=== PATIENT | female | born 1965 | race Caucasian/White ===

== ENCOUNTER 2018-10-24 17:00 | Inpatient (IN) ==
[2018-10-24] MEDS ORDERED: Nitroglycerin Drip Premix 50 MG/250 ML BOTTLE IV.CONT PRN (17:21)
--- NOTE | 2018-10-24 17:31 | ED ---
HPI General Chief Complaint: Chest Pain Stated Complaint: Chest Pain Time Seen by Provider: 10/24/18 17:08 Source: patient Mode of arrival: EMS Limitations: no limitations History of Present Illness HPI narrative: Patient is a 53-year-old female with history of hypertension, ischemic cardiomyopathy, CHF, AICD, coronary disease status past 10 stents, history of tobacco abuse, presents to the emergency room with complaints of chest pain. Patient reports that her pharmacy intake technician is Dr. Pina. Patient reports that she was laying down around 2 PM this afternoon when she began to have massive chest pain. Patient reports that chest pain is located to her left chest, reports that it feels like a "massive pain" to her chest. Patient reports that she has been feeling diaphoretic with nausea and no vomiting with her symptoms. Patient is concerned as her chest pain radiates to her neck and her left jaw. Patient reports that this pain feels similar to when she had a heart attack in the past. Patient was admitted to the hospital October 12, 2018 with similar complaints. Reports that she was discharged the next day and not followed up with her pharmacy intake technician since then. Patient reports that she did take 2 nitroglycerin prior to coming to the emergency room - it did help with her chest pain but reports return of chest pain shortly thereafter. She did take her full dose of asa 325mg prior to coming to the ER. Related Data Home Medications Medication Instructions Recorded Confirmed albuterol sulfate 2 puff INHALATION Q4-6H PRN 10/11/18 10/24/18 alprazolam 1 mg PO BID 10/11/18 10/24/18 aspirin 325 mg PO DAILY 10/11/18 10/24/18 atorvastatin 10 mg PO DAILY 10/11/18 10/24/18 fluticasone 2 spray INTRANASAL DAILY 10/11/18 10/24/18 furosemide 20 mg PO DAILY 10/11/18 10/24/18 isosorbide mononitrate 120 mg PO DAILY 10/11/18 10/24/18 nitroglycerin 0.4 mg SUBLINGUAL Q5-15M PRN 10/11/18 10/24/18 omeprazole 10 mg PO DAILY 10/11/18 10/24/18 oxycodone-acetaminophen 1 tab PO Q6H PRN 10/11/18 10/24/18 spironolactone 25 mg PO BID 10/11/18 10/24/18 zolpidem 10 mg PO HS PRN 10/11/18 10/24/18 Allergies Allergy/AdvReac Type Severity Reaction Status Date / Time hydrocodone Allergy Severe Hives Verified 10/24/18 17:37 morphine Allergy Severe Hives Verified 10/24/18 17:37 acetaminophen AdvReac Severe Nausea Verified 10/24/18 17:37 metoclopramide [From Reglan] AdvReac Severe Nausea/Vomi Verified 10/24/18 17:37 ting ondansetron AdvReac Severe Nausea/Vomi Verified 10/24/18 17:37 ting Review of Systems ROS: all other systems reviewed are negative [facility] Medical History Medical History Afib (Acute) Cardiomyopathy (Acute) Hyperlipidemia (Acute) Presence of combination internal cardiac defibrillator (ICD) and pacemaker ( Acute) Surgical History Surgical History History of heart artery stent (Acute) S/P right and left heart catheterization (Acute) Social History Social History Substance History: No History of Abuse Second Hand Smoke Exposure: No Smoking Status: Current every day smoker Tobacco Type: Cigarettes How Often Do You Have a Drink Containing Alcohol: Never Recent Travel in [facility] within the Last 8 Weeks: No Recent Out of Country Travel within the Last 8 Weeks: No Immunization History Tetanus Immunization: <5 Years Exam Narrative Exam Narrative: GENERAL: Mild distress SKIN: Focused skin assessment warm/dry. HEAD: Atraumatic. Normocephalic. EYES: Pupils equal and round. No scleral icterus. No injection or drainage. ENT: No nasal bleeding or discharge. Mucous membranes pink and moist. NECK: Trachea midline. No JVD. CARDIOVASCULAR: Regular rate and rhythm. +2/6 systolic murmur appreciated RESPIRATORY: No accessory muscle use. Clear to auscultation. Breath sounds equal bilaterally. GASTROINTESTINAL: Abdomen soft, non-tender, nondistended. Hepatic and splenic margins not palpable. MUSCULOSKELETAL: No obvious deformities. No clubbing. No cyanosis. No edema. NEUROLOGICAL: Awake and alert. No obvious cranial nerve deficits. Motor grossly within normal limits. Normal speech. PSYCHIATRIC: Appropriate mood and affect; insight and judgment normal. Course Initial Documented Vital Signs Temperature 99.1 F 10/24/18 17:24 Pulse Rate 89 10/24/18 17:24 Respiratory Rate 18 10/24/18 17:24 Blood Pressure 137/74 10/24/18 17:24 Pulse Oximetry 95 10/24/18 17:24 Last Documented Vital Signs Temperature 99.1 F 10/24/18 17:24 Pulse Rate 81 10/24/18 18:45 Respiratory Rate 26 H 10/24/18 18:45 Blood Pressure 146/69 H 10/24/18 18:45 Pulse Oximetry 99 10/24/18 18:45 Critical Care Time Critical Care Time: Yes Total Critical Care Time: 30 Attestation: Aggregate critical care time was 30 minutes. Time to perform other separately billable procedures was not included in the critical care time. My time did not include minutes spent treating any other patients simultaneously or on activities that did not directly contribute to the patient's treatment. The services I provided to this patient were to treat and/or prevent clinically significant deterioration that could result in: , decompensation, deterioration I provided critical care services requiring my management, as noted below: Chart data review, documentation time, medication orders and management, vital sign assessments/reviewing monitor data, ordering and reviewing lab tests, ordering and interpreting/reviewing x-rays and diagnostic studies, care of the patient and discussion of the patient with the admitting physicians. Medical Decision Making MDM Narrative Medical decision making narrative: During the course of the patients emergency department visit, the patients history, examination, and differential diagnosis were reviewed with the patient. The patient was placed on a gambling monitor with oximetry and frequent blood pressure monitoring. The patient had an IV access obtained and blood work sent for analysis. The patient was initially started on nitro drip to control her chest pain as 2 SL nitro's did help with her symptoms. I did review patient's past admission and consult to cardiology. As per Dr. Boggs' s note: he did review patient's case with Dr. Arita - "the patient has always been complaining of chest pain. The patient has at least 10 cardiac catheterizations, last one showed no significant stenosis or anything to be fixed. He thinks that the patient may be dependent on narcotics. At the time of interview, patient looks comfortable despite complaints of chest pain. "Patient's last cardiac catheterization was 9 months ago according to Dr. Arita and there is nothing to fix. Ultimately, patient was discharged with instructions to follow-up with him in the office early next week Patient reports that she did not follow-up with Dr. Arita in the office as she has been going through alot at home as her fiance recently . Case reviewed with Dr. Whipple - request nitro, heparin drip and will trend trops case reviewed with Dr. Motley who accepts pt to service Medical Screen Exam Complete: Yes Emergency Medical Condition: Yes Differential Diagnosis Differential Diagnosis: ACS, arrhythmia, narcotic dependency Medical Records Medical records reviewed: Yes I reviewed the patient's medical records. Lab Data Result diagrams: 10/24/18 17:30 10/24/18 17:30 Lab Results 10/24/18 10/24/18 10/24/18 Range/Units 17:30 17:30 17:30 WBC 8.2 (4.0-11.0) th/mm3 RBC 4.81 (4.00-5.30) mil/mm3 Hgb 11.9 (11.6-15.3) gm/dL Hct 37.3 (35.0-46.0) % MCV 77.5 L (80.0-100.0) fL MCH 24.7 L (27.0-34.0) pg MCHC 31.8 L (32.0-36.0) % RDW 19.5 H (11.6-17.2) % Plt Count 241 D (150-450) th/mm3 MPV 8.7 (7.0-11.0) fL Neut % (Auto) 64.4 (16.0-70.0) % Lymph % (Auto) 25.3 (9.0-44.0) % [place] % (Auto) 9.0 H (0.0-8.0) % Eos % (Auto) 0.8 (0.0-4.0) % Baso % (Auto) 0.5 (0.0-2.0) % Neut # (Auto) 5.3 (1.8-7.7) th/mm3 Lymph # (Auto) 2.1 (1.0-4.8) th/mm3 [place] # (Auto) 0.7 (0.0-0.9) th/mm3 Eos # (Auto) 0.1 (0.0-0.4) th/mm3 Baso # (Auto) 0.0 (0.0-0.2) th/mm3 WBC Differential . Differential Comment Auto diff final PT 12.2 H (9.8-11.6) sec INR 1.2 Ratio APTT 25.9 (23.4-31.7) sec Total Bilirubin 0.8 (0.2-1.0) mg/dL Alkaline Phosphatase 102 (45-117) U/L Troponin I 0.02 (0.02-0.05) ng/mL Total Protein 7.6 (6.4-8.2) g/dL Imaging Data Radiologist's impression: Chest X-Ray 10/24/18 17:21 CONCLUSION: 1. Subtle perihilar and lower lung zone interstitial opacity could represent mild interstitial pulmonary edema. 2. Stable enlargement of the cardiac silhouette. ECG Data EKG Prior to Arrival: Yes Attestation: I personally reviewed and interpreted this ECG as follows: Prior ECG tracings: available for review Interpretation: EKG at 1722: NSr at 89bpm, qt/qtc: 403/449, there is no acute st or t wave changes, ekg is similar to ekg from 10/11/18 Discharge Plan Discharge Disposition Patient Disposition: ED Admit(ED Internal Use Only) Discharge Condition Condition: Fair Discharge Order Discharge Orders: ED Use Only Admit Order (Routine); Ordered 10/24/18 Ordered By: Almaz aGlarza Discharge Details Diagnosis: Unstable angina Physicians Team ED Provider: Almaz Galarza Rxs /Orders / Referrals /Forms Prescriptions: No Action atorvastatin 10 mg Tablet 10 mg PO DAILY RF: 0 spironolactone 25 mg Tablet 25 mg PO BID RF: 0 isosorbide mononitrate 120 mg Tablet Extended Release 24 Hr 120 mg PO DAILY RF: 0 alprazolam 0.5 mg Tablet 1 mg PO BID RF: 0 omeprazole 10 mg Capsule,Delayed Release(Dr/Ec) 10 mg PO DAILY RF: 0 aspirin 325 mg Tablet,Delayed Release (Dr/Ec) 325 mg PO DAILY RF: 0 oxycodone-acetaminophen 10-325 mg Tablet 1 tab PO Q6H PRN (Reason: Pain) RF: 0 nitroglycerin 0.4 mg Tablet, Sublingual 0.4 mg SUBLINGUAL Q5-15M PRN (Reason: Chest Pain) RF: 0 furosemide 20 mg Tablet 20 mg PO DAILY RF: 0 zolpidem 10 mg Tablet 10 mg PO HS PRN (Reason: Insomnia) RF: 0 albuterol sulfate 90 mcg/actuation Hfa Aerosol Inhaler 2 puff INHALATION Q4-6H PRN (Reason: Wheezing) RF: 0 fluticasone 50 mcg/actuation [place],Suspension 2 spray INTRANASAL DAILY RF: 0 Discharge Instructions Patient Printed Instructions: Chest Pain (ED) Status ED Status: Admitted Patient
--- NOTE | 2018-10-24 17:45 | XR ---
EXAM DATE: 10/24/2018 5:41 PM EST AGE/SEX: 53 years / Female INDICATIONS: Chest pain. CLINICAL DATA: This is the patient's initial encounter. Patient reports that signs and symptoms have been present for 1 day and indicates a pain score of 10/10. MEDICAL/SURGICAL HISTORY: Cardiovascular disease. Pacemaker. Coronary artery stent. section. Cholecystectomy. [place]PAR[place]: [facility] [place]ST 2V PA&LAT, 10/11/2018. . FINDINGS: Portable AP view of the chest demonstrate stable enlargement of the cardiac silhouette. Right chest w all cardiac pacing device is present with lead tips overlying the right heart. No effusion, consolida tion, or pneumothorax is identified. There is mild interstitial prominence in the perihilar and lower lung zone distribution. The bones and soft tissues demonstrate no acute abnormality. CONCLUSION: 1. Subtle perihilar and lower lung zone interstitial opacity could represent mild interstitial pulmo nary edema. 2. Stable enlargement of the cardiac silhouette. Electronically signed by: Rowdy Powers MD Board Certified Radiologist 10/24/2018 5:43 PM EST
[2018-10-24 17:46] LABS: Baso % (Auto) 0.5 % (0.0-2.0); Eos # (Auto) 0.1 th/mm3 (0.0-0.4); Eos % (Auto) 0.8 % (0.0-4.0); Hematocrit 37.3 % (35.0-46.0); Hemoglobin 11.9 gm/dL (11.6-15.3); Lymph # (Auto) 2.1 th/mm3 (1.0-4.8); Lymph % (Auto) 25.3 % (9.0-44.0); Mean Corpuscular HGB Conc 31.8 % (32.0-36.0); Mean Corpuscular Hemoglobin 24.7 pg (27.0-34.0); Mean Corpuscular Volume 77.5 fL (80.0-100.0); Mean Platelet Volume 8.7 fL (7.0-11.0); Mono # (Auto) 0.7 th/mm3 (0.0-0.9); Neut # (Auto) 5.3 th/mm3 (1.8-7.7); Neut % (Auto) 64.4 % (16.0-70.0); Platelet Count 241 th/mm3 (150-450); Red Blood Count 4.81 mil/mm3 (4.00-5.30); Red Cell Distribution Width 19.5 % (11.6-17.2); White Blood Count 8.2 th/mm3 (4.0-11.0)
[2018-10-24 18:00] LABS: Activated Partial Thrombo Time 25.9 sec (23.4-31.7); INR 1.2 Ratio; Prothrombin Time 12.2 sec (9.8-11.6)
[2018-10-24 18:09] LABS: Alkaline Phosphatase 102 U/L (45-117); Total Protein 7.6 g/dL (6.4-8.2); Troponin I 0.02 ng/mL (0.02-0.05)
[2018-10-24] MEDS ORDERED: Bisacodyl 10 MG Supp RECTAL PRN (19:53)
[2018-10-24 20:10] LABS: Amphetamine Screen,Urine Neg (Neg); Barbiturate Screen,Urine Neg (Neg); Cannabinoid Screen,Urine Neg (Neg); Cocaine Screen,Urine Neg (Neg)
[2018-10-24 20:11] LABS: Opiate Screen,Urine Neg (Neg)
--- NOTE | 2018-10-24 21:06 | P.HPIM ---
History of Present Illness Primary Care Physician: No Primary Care Physician History of Present Illness: BNP 686.This is a 53-year-old female with a PMH of HTN, Ischemic Cardiomyopathy, CHF, s/p AICD, CAD s/p Stent x10 and Tobacco Abuse who presented to the ER w/ c/o chest pain. Recent admit 10/12/18 for similar complaints, s/p eval by Cardiology w/ no signs of ischemia, recommendation for medical management. Returns now w/ ongoing complaints. Pt very anxious/tearful on exam, requesting Dilaudid, states NTG "doesn't do anything". On arrival, BP 149/67, HR 85, O2 sat 95% on RA, Temp 99.1. CBC at baseline. INR 1.2. Troponin 0 0.02. Urine Drug Screen positive for Benzos per CXR with possible interstitial pulmonary edema. Follows w/ Dr. Pina as outpatient, previous cardiac caths negative for significant stenosis, concern for possible narcotic dependence per notes. Dr. Whipple consulted today by ER physician, recommendation for NTG gtt/Heparin gtt and will eval in am. Inpatient Certification Inpatient Certification: I certify that the inpatient services were ordered in accordance with Medicare regulations governing the order. This includes certification that hospital inpatient services are reasonable and necessary and in the case of services not specified as inpatient-only under 42 CFR 419.22(n), that they are appropriately provided as inpatient services in accordance to with the 2-midnight benchmark under 43 CFR 412.3(e) Estimated Total Length of Stay (Days): 2 Plans for Post Hospital Care: Not yet determined Review of Systems PAST FAMILY HISTORY: Reviewed. No h/o DM or CAD Review of Systems: all other systems reviewed are negative [facility] Medical History Medical History Afib (Acute) Cardiomyopathy (Acute) Hyperlipidemia (Acute) Presence of combination internal cardiac defibrillator (ICD) and pacemaker ( Acute) Surgical History Surgical History History of heart artery stent (Acute) S/P right and left heart catheterization (Acute) Social History Social History Substance History: No History of Abuse Second Hand Smoke Exposure: No Smoking Status: Current every day smoker Tobacco Type: Cigarettes How Often Do You Have a Drink Containing Alcohol: Monthly or less Recent Travel in [place] within the Last 8 Weeks: No Recent Out of Country Travel within the Last 8 Weeks: No Immunization History Tetanus Immunization: <5 Years Medications and Allergies Allergies Allergy/AdvReac Type Severity Reaction Status Date / Time hydrocodone Allergy Severe Hives Verified 10/24/18 17:37 morphine Allergy Severe Hives Verified 10/24/18 17:37 acetaminophen AdvReac Severe Nausea Verified 10/24/18 17:37 metoclopramide [From Reglan] AdvReac Severe Nausea/Vomi Verified 10/24/18 17:37 ting ondansetron AdvReac Severe Nausea/Vomi Verified 10/24/18 17:37 ting Home Medications Medication Instructions Recorded Confirmed Type albuterol sulfate 2 puff INHALATION Q4-6H PRN 10/11/18 10/24/18 History alprazolam 1 mg PO BID 10/11/18 10/24/18 History aspirin 325 mg PO DAILY 10/11/18 10/24/18 History atorvastatin 10 mg PO DAILY 10/11/18 10/24/18 History fluticasone 2 spray INTRANASAL DAILY 10/11/18 10/24/18 History furosemide 20 mg PO DAILY 10/11/18 10/24/18 History isosorbide mononitrate 120 mg PO DAILY 10/11/18 10/24/18 History nitroglycerin 0.4 mg SUBLINGUAL Q5-15M PRN 10/11/18 10/24/18 History omeprazole 10 mg PO DAILY 10/11/18 10/24/18 History oxycodone-acetaminophen 1 tab PO Q6H PRN 10/11/18 10/24/18 History spironolactone 25 mg PO BID 10/11/18 10/24/18 History zolpidem 10 mg PO HS PRN 10/11/18 10/24/18 History Active Medications: Active Medications Al Hydroxide/Mg Hydroxide (Milk Of Magnesia Liq) 30 ml PO Q12H PRN PRN Reason: Mild Constipation Alprazolam (Xanax) 1 mg PO BID NAFISA Aspirin (Ecotrin) 325 mg PO DAILY NAFISA Atorvastatin Calcium (Lipitor) 10 mg PO DAILY NAFISA Bisacodyl (Dulcolax Supp) 10 mg RECTAL DAILY PRN PRN Reason: SEVERE CONSITIPATION Fluticasone Propionate (Flonase Nasal [place]) 2 spray EACH NARE DAILY NAFISA Furosemide (Lasix) 20 mg PO DAILY NAFISA Nitroglycerin/Dextrose (Nitroglycerin Drip Premix) 50 mg in 250 mls @ 1.5 mls/ hr IV.CONT TITRATE PRN; Protocol PRN Reason: See Protocol Last Titration: 10/24/18 19:30 Dose: 0 mcg/min, 0 mls/hr Heparin Sodium/Dextrose (Heparin/D5w 25,000 U/250 Ml) 25,000 unit in 250 mls @ 0 mls/hr IV.CONT TITRATE PRN; Protocol PRN Reason: Per Protocol Isosorbide Mononitrate (Imdur) 120 mg PO DAILY@0700 NAFISA Ketorolac Tromethamine (Toradol Inj) 30 mg IM ONCE ONE Stop: 10/24/18 20:33 Lactulose (Lactulose Liq) 30 ml PO DAILY PRN PRN Reason: SEVERE CONSITIPATION Lorazepam (Ativan Inj) 1 mg IV.PUSH Q2H PRN PRN Reason: ANXIETY/CHEST PAIN [place]: Omeprazole 10 (Mg By Mouth Daily) 1 each PO DAILY NAFISA Senna/Docusate Sodium (Ximena-Colace) 1 tab PO BID NAFISA Sennosides (Senokot) 17.2 mg PO Q12H PRN PRN Reason: Moderate Constipation Sodium Chloride (Ns Flush) 2 ml IV.FLUSH BID NAFISA Sodium Chloride (Ns Flush) 2 ml IV.FLUSH PRN PRN PRN Reason: FLUSH AFTER USING IV ACCESS Spironolactone (Aldactone) 25 mg PO BID NAFISA Zolpidem Tartrate (Ambien) 10 mg PO HS PRN PRN Reason: Insomnia Physical Exam Vital signs: Last Vital Signs Temp 99.1 F 10/24/18 17:24 Pulse 88 10/24/18 20:07 Resp 20 10/24/18 20:07 BP 149/68 H 10/24/18 20:07 Pulse Ox 97 10/24/18 20:50 Intake & Output 10/22/18 10/23/18 10/24/18 10/25/18 06:59 06:59 06:59 06:59 Weight 72.575 kg Narrative: PE: GENERAL: Middle-aged white female very anxious/tearful, complaining of chest pain, states "probably muscular" SKIN: Focused skin assessment warm and dry. HEENT: PERRLA, EOMI. No scleral icterus or conjunctival pallor. No lid lag or facial droop. CARDIOVASCULAR: Regular rate and rhythm. No obvious murmurs to auscultation. No chest tenderness to palpation. RESPIRATORY: No obvious rhonchi or wheezing. Clear to auscultation. Breath sounds equal bilaterally. GASTROINTESTINAL: Abdomen soft, non-tender, nondistended. BS normal. MUSCULOSKELETAL: Extremities without clubbing, cyanosis, or edema. No obvious deformities. NEUROLOGICAL: Awake, alert and oriented x4. No focal neurologic deficits. Moving both upper and lower extremities spontaneously. PSYCHIATRIC: Appropriate mood and affect. Insight and judgment normal. Results Labs CBC & Chem 7: 10/24/18 17:30 10/24/18 19:25 Imaging Impressions Chest X-Ray 10/24/18 17:21 CONCLUSION: 1. Subtle perihilar and lower lung zone interstitial opacity could represent mild interstitial pulmonary edema. 2. Stable enlargement of the cardiac silhouette. Caprini VTE Risk Assessment Caprini VTE Risk Assessment: No/Low Risk (score <= 1) Caprini Risk Assessment Model: Point Value = 1 Point Value = 2 Point Value = 3 Point Value = 5 Age 41-60 Minor surgery BMI > 25 kg/m2 Swollen legs Varicose veins or History of unexplained or recurrent spontaneous Oral contraceptives or hormone replacement Sepsis (< 1 month) Serious lung disease, including pneumonia (< 1 month) Abnormal pulmonary function Acute myocardial infarction Congestive heart failure (< 1 month) History of inflammatory bowel disease Medical patient at bed rest Age 61-74 Arthroscopic surgery Major open surgery (> 45 min) Laparoscopic surgery (> 45 min) Malignancy Confined to bed (> 72 hours) Immobilizing plaster cast Central venous access Age >= 75 History of VTE Family history of VTE Factor V Leiden Prothrombin [id number] Lupus anticoagulant Anticardiolipin antibodies Elevated serum homocysteine Heparin-induced thrombocytopenia Other congenital or acquired thrombophilia Stroke (< 1 month) Elective arthroplasty Hip, pelvis, or leg fracture Acute spinal cord injury (< 1 month) Prophylaxis Regimen: Total Risk Factor Score Risk Level Prophylaxis Regimen 0-1 Low Early ambulation 2 Moderate Order ONE of the following: *Sequential Compression Device (SCD) *Heparin 5000 units SQ BID 3-4 Higher Order ONE of the following medications: *Heparin 5000 units SQ TID *Enoxaparin/Lovenox 40 mg SQ daily (WT < 150 kg, CrCl > 30 mL/min) *Enoxaparin/Lovenox 30 mg SQ daily (WT < 150 kg, CrCl > 10-29 mL/min) *Enoxaparin/Lovenox 30 mg SQ BID (WT < 150 kg, CrCl > 30 mL/min) AND/OR *Sequential Compression Device (SCD) 5 or more Highest Order ONE of the following medications: *Heparin 5000 units SQ TID (Preferred with Epidurals) *Enoxaparin/Lovenox 40 mg SQ daily (WT < 150 kg, CrCl > 30 mL/min) *Enoxaparin/Lovenox 30 mg SQ daily (WT < 150 kg, CrCl > 10-29 mL/min) *Enoxaparin/Lovenox 30 mg SQ BID (WT < 150 kg, CrCl > 30 mL/min) AND *Sequential Compression Device (SCD) Assessment and Plan Plan A/P: 1. Unstable Angina: h/o CAD w/ multiple stents in the past, recent admit for same, s/p eval by Cardiology w/ no intervention, Dr. Whipple consulted, recommendation for Heparin/NTG gtt, will eval in am. 2. Chest Pain: recurrent, review of records w/ no significant stenosis on cath , concern for possible narcotic dependence, requesting Dilaudid. Pt refusing NTG gtt. Ativan/Toradol x1 for pain complaints, trend cardiac enzymes, consult for Cardiology as above. 3. Tobacco Abuse: Pt counselled. No NicoDerm to avoid vasoconstriction. 4. DVT Prophylaxis: Heparin gtt 5. Social work for d/c planning as needed. 6. Case discussed w/ ER physican at length, labs/records/imaging reviewed by me.
[2018-10-24] MEDS: Heparin Drip 25,000 UNIT/250 ML BAG IV.CONT PRN (21:41)
[2018-10-24] MEDS: Spironolactone 25 MG Tablet PO SCH (21:50)
[2018-10-24] MEDS: Senna/Docusate Sodium 8.6/50 MG Tablet PO SCH (21:50)
[2018-10-25 02:52] LABS: Alanine Aminotransferase 22 U/L (10-53); Albumin 3.1 g/dL (3.4-5.0); Anion Gap 10 meq/L (5-15); Aspartate Aminotransferase 14 U/L (15-37); Blood Urea Nitrogen 19 mg/dL (7-18); Calcium 8.5 mg/dL (8.5-10.1); Carbon Dioxide 21.3 meq/L (21.0-32.0); Chloride 112 meq/L (98-107); Glomerular Filtration Rate 42 mL/min (>89); Glucose,Random 167 mg/dL (74-106); Potassium 3.8 meq/L (3.5-5.1); Sodium 143 meq/L (136-145)
[2018-10-25 02:53] LABS: Lipase 191 U/L (73-393)
[2018-10-25] MEDS ORDERED: HYDROmorphone PF Inj 0.5 MG/0.5 ML Syringe IV.PUSH ONE ×2 (04:55→10:00)
[2018-10-25 05:39] LABS: Anion Gap 10 meq/L (5-15); Aspartate Aminotransferase 14 U/L (15-37); Blood Urea Nitrogen 19 mg/dL (7-18); Calcium 8.6 mg/dL (8.5-10.1); Carbon Dioxide 20.5 meq/L (21.0-32.0); Chloride 111 meq/L (98-107); Glomerular Filtration Rate 48 mL/min (>89); Glucose,Random 149 mg/dL (74-106); Potassium 3.8 meq/L (3.5-5.1); Sodium 141 meq/L (136-145)
[2018-10-25 05:40] LABS: Alanine Aminotransferase 20 U/L (10-53)
[2018-10-25 05:44] LABS: Alkaline Phosphatase 101 U/L (45-117); Total Protein 7.1 g/dL (6.4-8.2); Troponin I 0.02 ng/mL (0.02-0.05)
[2018-10-25 05:47] LABS: Creatine Kinase 39 U/L (26-192)
[2018-10-25] MEDS: Isosorbide Mononitrate 60 MG ER 24HR Tablet (Imdur) PO SCH (06:33)
[2018-10-25] MEDS ORDERED: PTOWN: OMEPRAZOLE 10 MG BY MOUTH DAILY PO SCH (09:00)
[2018-10-25] MEDS: Senna/Docusate Sodium 8.6/50 MG Tablet PO SCH ×2 (09:04→20:52)
[2018-10-25] MEDS: Furosemide 20 MG Tablet PO SCH (09:05)
[2018-10-25] MEDS: Spironolactone 25 MG Tablet PO SCH ×2 (09:05→20:52)
--- NOTE | 2018-10-25 09:39 | P.PN ---
Subjective Interval history: Nursing reports the patient still having chest pain. Patient says she is afraid of dying. Says this is never happened to her before. She does admit chest pain with deep inspiration, she flinches much more in pain when I palpate over her left pectoral region in the presence of the nurse. She has a difficult time ascertaining whether this has been the exact same pain she is presenting with. Physical Exam Vital signs: Vital Signs 10/24/18 17:24 10/24/18 17:46 10/24/18 17:54 Temperature 99.1 F Pulse Rate 89 88 85 Respiratory Rate 18 24 Blood Pressure 137/74 149/67 H Pulse Oximetry 95 97 95 10/24/18 17:55 10/24/18 18:14 10/24/18 18:19 Temperature Pulse Rate 82 81 81 Respiratory Rate 24 16 30 H Blood Pressure 142/71 H 145/72 H Pulse Oximetry 97 97 98 10/24/18 18:45 10/24/18 20:07 10/24/18 20:50 Temperature Pulse Rate 81 88 Respiratory Rate 26 H 20 Blood Pressure 146/69 H 149/68 H Pulse Oximetry 99 96 97 10/24/18 21:50 10/24/18 23:00 10/25/18 00:00 Temperature 97.3 F L Pulse Rate 87 85 85 Respiratory Rate 18 24 Blood Pressure 147/77 H 147/85 H Pulse Oximetry 96 99 10/25/18 01:00 10/25/18 02:00 10/25/18 03:00 Temperature Pulse Rate 86 87 87 Respiratory Rate Blood Pressure Pulse Oximetry 10/25/18 04:00 10/25/18 05:00 10/25/18 06:00 Temperature 98.3 F Pulse Rate 87 85 91 H Respiratory Rate 30 H Blood Pressure 136/69 Pulse Oximetry 99 10/25/18 07:00 10/25/18 07:53 10/25/18 08:00 Temperature 98.3 F Pulse Rate 91 H 81 Respiratory Rate 20 Blood Pressure 145/78 H Pulse Oximetry 100 95 100 Intake & Output 10/24/18 10/25/18 10/25/18 18:59 06:59 18:59 Intake Total 500 / 500 Balance 500 / 500 Weight 72.575 kg 80.5 kg Intake: Oral 500 / 500 Other: # Voids 1 Date of Last Bowel Movement 10/24/18 10/24/18 Weight On Admission 80.5 kg Narrative: Clear lungs bilaterally, labored breathing Heart sounds regular rate and rhythm No lower extremity edema Has tenderness over left chest wall/pectoral region upon deep palpation to the point where the patient gets tearful Awake and alert Results - Labs CBC & Chem 7: 10/25/18 10:06 10/25/18 04:27 Laboratory Results - last 24 hr 10/24/18 10/24/18 10/24/18 17:30 17:30 17:30 WBC 8.2 RBC 4.81 Hgb 11.9 Hct 37.3 MCV 77.5 L MCH 24.7 L MCHC 31.8 L RDW 19.5 H Plt Count 241 D MPV 8.7 Neut % (Auto) 64.4 Lymph % (Auto) 25.3 Taylor % (Auto) 9.0 H Eos % (Auto) 0.8 Baso % (Auto) 0.5 Neut # (Auto) 5.3 Lymph # (Auto) 2.1 Taylor # (Auto) 0.7 Eos # (Auto) 0.1 Baso # (Auto) 0.0 WBC Differential . Differential Comment Auto diff final PT 12.2 H INR 1.2 APTT 25.9 Sodium Potassium Chloride Carbon Dioxide Anion Gap BUN Creatinine Estimated GFR Random Glucose Calcium Total Bilirubin AST ALT Alkaline Phosphatase Total Creatine Kinase Troponin I B-Natriuretic Peptide 686 H Total Protein Albumin Lipase Urine Opiates Screen Ur Barbiturates Screen Ur Amphetamines Screen U Benzodiazepines Scrn Urine Cocaine Screen U Cannabinoids Screen 10/24/18 10/24/18 10/24/18 17:30 19:25 19:30 WBC RBC Hgb Hct MCV MCH MCHC RDW Plt Count MPV Neut % (Auto) Lymph % (Auto) Taylor % (Auto) Eos % (Auto) Baso % (Auto) Neut # (Auto) Lymph # (Auto) Taylor # (Auto) Eos # (Auto) Baso # (Auto) WBC Differential Differential Comment PT INR APTT Sodium 143 Potassium 3.8 Chloride 112 H Carbon Dioxide 21.3 Anion Gap 10 BUN 19 H Creatinine 1.33 H Estimated GFR 42 L Random Glucose 167 H Calcium 8.5 Total Bilirubin 0.8 AST 14 L ALT 22 Alkaline Phosphatase 102 Total Creatine Kinase Cancelled Troponin I Cancelled 0.02 B-Natriuretic Peptide Total Protein 7.6 Albumin 3.1 L Lipase 191 Urine Opiates Screen Neg Ur Barbiturates Screen Neg Ur Amphetamines Screen Neg U Benzodiazepines Scrn Pos H Urine Cocaine Screen Neg U Cannabinoids Screen Neg 10/25/18 10/25/18 04:27 04:27 WBC RBC Hgb Hct MCV MCH MCHC RDW Plt Count MPV Neut % (Auto) Lymph % (Auto) Taylor % (Auto) Eos % (Auto) Baso % (Auto) Neut # (Auto) Lymph # (Auto) Taylor # (Auto) Eos # (Auto) Baso # (Auto) WBC Differential Differential Comment PT INR APTT 22.2 L Sodium 141 Potassium 3.8 Chloride 111 H Carbon Dioxide 20.5 L Anion Gap 10 BUN 19 H Creatinine 1.18 H Estimated GFR 48 L Random Glucose 149 H Calcium 8.6 Total Bilirubin 0.7 AST 14 L ALT 20 Alkaline Phosphatase 101 Total Creatine Kinase 39 Troponin I 0.02 B-Natriuretic Peptide Total Protein 7.1 Albumin 3.0 L Lipase Urine Opiates Screen Ur Barbiturates Screen Ur Amphetamines Screen U Benzodiazepines Scrn Urine Cocaine Screen U Cannabinoids Screen - Imaging Impressions Chest X-Ray 10/24/18 17:21 CONCLUSION: 1. Subtle perihilar and lower lung zone interstitial opacity could represent mild interstitial pulmonary edema. 2. Stable enlargement of the cardiac silhouette. Assessment and Plan - Plan 53-year-old female admitted with chest pain. Recent admit 10/12/18 for same, s/p eval by Cardiology w/ no intervention at that time. PMH , hx of ICD placement for cardiomyopathy. Chest pain CAD Definitely has a MSK component if not the only reason -Being treated empirically for unstable angina with heparin drip until cardiology decides otherwise -Continue aspirin, statin -May consider getting a d-dimer since the patient claims she's had a DVT in the past Cardiomyopathy CHF class 2 -ICD in 2014 single chamber -Continue home BiDil, furosemide, spironolactone Acute kidney injury Likely secondary to dehydration -Improving, continue IV fluids -bmp in AM Addendum: D-dimer results within normal limits, no further PE workup as the patient otherwise does not present as someone who is having a PE with 6 symptoms of tachycardia and labored breathing.
--- NOTE | 2018-10-25 09:46 | ECG ---
Date Performed: 10/24/2018 Time Performed: 17:22:23 PTAGE: 53 years EKG: Sinus rhythm LEFT ATRIAL ENLARGEMENT MARKED LEFT AXIS DEVIATION INTRAVENTRICULAR CONDUCTION DELAY ABNORMAL ECG PREVIOUS TRACING : 10/11/2018 22.30 DOCTOR: Lucio Cortes Interpretating Date/Time 10/25/2018 09:45:02
[2018-10-25] MEDS: Sod Chloride 0.9% Inj 1,000 ML IV.CONT SCH (11:07)
[2018-10-25 11:38] LABS: Baso % (Auto) 0.2 % (0.0-2.0); Eos % (Auto) 0.8 % (0.0-4.0); Hematocrit 35.9 % (35.0-46.0); Hemoglobin 11.3 gm/dL (11.6-15.3); Lymph # (Auto) 2.4 th/mm3 (1.0-4.8); Lymph % (Auto) 40.2 % (9.0-44.0); Mean Corpuscular HGB Conc 31.6 % (32.0-36.0); Mean Corpuscular Hemoglobin 24.5 pg (27.0-34.0); Mean Corpuscular Volume 77.3 fL (80.0-100.0); Mean Platelet Volume 8.8 fL (7.0-11.0); Mono # (Auto) 0.5 th/mm3 (0.0-0.9); Mono % (Auto) 8.4 % (0.0-8.0); Neut % (Auto) 50.4 % (16.0-70.0); Platelet Count 238 th/mm3 (150-450); Red Blood Count 4.64 mil/mm3 (4.00-5.30); Red Cell Distribution Width 18.7 % (11.6-17.2); White Blood Count 5.9 th/mm3 (4.0-11.0)
[2018-10-25] MEDS: Lidocaine 5% Patch T-DERMAL SCH (15:34)
--- NOTE | 2018-10-25 20:39 | MB ---
cc: Patrick Whipple MD,Jazmín BELTRAN DATE: 10/25/2018 HISTORY OF PRESENT ILLNESS: Ashia is a very pleasant 53-year-old lady followed by Dr. Jazmín Pina in his office for cardiomyopathy also AFib. The patient has a history of hyperlipidemia, status post PCI. She had a left and right heart catheterization in 01/2018. She presents with a chief complaint of chest pain. Currently, she is sitting up at the bedside, in no acute distress. Denies fever, chills, cough, GI or bleeding, PND, orthopnea, syncope or dizziness. She notes that her chest pain was "massive" associated with diaphoresis and nauseousness, no vomiting. The pain radiated to her neck and her left jaw similar to the pain she had with her heart attack in the past. SOCIAL HISTORY: She smokes. Alcohol: Denies. PAST MEDICAL HISTORY: Includes AFib, cardiomyopathy, hyperlipidemia ICD pacemaker. ALLERGIES: 1. HYDROCODONE. 2. MORPHINE. 3. ACETAMINOPHEN. 4. METOCLOPRAMIDE. 5. ONDANSETRON. MEDICATIONS: 1. Xanax 1 mg b.i.d. 2. Aspirin 325 daily. 3. Lipitor 10 mg daily. 4. Lasix 20 mg daily. 5. IV heparin. 6. Imdur 120 mg daily. 7. Aldactone 25 mg b.i.d. 8. Zolpidem 10 mg p.r.n. PHYSICAL EXAMINATION: VITAL SIGNS: Blood pressure 154/75, respiratory rate 20, pulse 89, temperature 98.8. GENERAL: She is alert and oriented x3, in no acute distress. NECK: Supple. No JVD. No bruit. CARDIOVASCULAR: S1, S2. No murmurs, rubs or gallops. LUNGS: Clear to auscultation bilaterally. ABDOMEN: Soft, nontender, nondistended with positive bowel sounds. EXTREMITIES: No lower extremity edema. LABORATORY DATA: Chest x-ray: Subtle perihilar and lower lung zone interstitial opacity could represent mild interstitial pulmonary edema, stable enlargement of the cardiac silhouette. EKG: Normal sinus rhythm at 89 beats per minute, intraventricular conduction delay, nonspecific ST-T wave changes. Left anterior fascicular block. LABORATORY DATA: White count 5.9, hemoglobin 11.3, hematocrit 35.9, platelet count 230, MCV is 77.3. INR is 1.2. Sodium 141, potassium 3.8, chloride 111, bicarbonate 20.5, BUN 19, creatinine 1.18. BNP is 686. Troponin 0.02 and 0.02. Toxicology is positive for benzodiazepine. FINAL DIAGNOSES: 1. Unstable angina. 2. [place] Cardi[employer] class IV angina. 3. Coronary artery disease. 4. Cardiomyopathy. 5. Atrial fibrillation. 6. Decompensated congestive heart failure. 7. Tobacco abuse. DISCUSSION: I do think left heart catheterization is medically necessary as the patient has severe symptoms, continues to smoke and has a history of PCI in the past. She states her some pain is similar to her prior heart attack. I have strongly advised the patient stop smoking. PLAN: Left heart catheterization on 10/26/2018. Otherwise, agree with aspirin, Lipitor 10, Lasix, heparin drip Aldactone. The patient is not on an CHEIKH inhibitor, beta deisi or an orally anticoagulated. We will need to discuss this with her and find out if there are any contraindication. Otherwise, these drugs are all indicated. Obviously, we will need to hold her oral anticoagulation until after her heart catheterization. Patrick Whipple MD AWC/ct , 07:29 PM , 07:40 PM
[2018-10-25] MEDS: Heparin Drip 25,000 UNIT/250 ML BAG IV.CONT PRN (22:09)
[2018-10-26 05:59] LABS: Calcium 8.4 mg/dL (8.5-10.1); Carbon Dioxide 21.2 meq/L (21.0-32.0); Potassium 3.9 meq/L (3.5-5.1)
[2018-10-26] MEDS: Isosorbide Mononitrate 60 MG ER 24HR Tablet (Imdur) PO SCH (08:15)
[2018-10-26] MEDS ORDERED: Heparin/NS PF Inj 1,000 ML ONE (08:43)
[2018-10-26] MEDS ORDERED: fentaNYL Citrate Inj 100 MCG/2 ML Ampul ONE (08:44)
[2018-10-26] MEDS ORDERED: Iohexol 350 MG/ML 50 ML Vial (for Cath Lab) IVCONTRAST ONE (09:30)
--- NOTE | 2018-10-26 10:05 | CATHPROC ---
[employer] HIS Report Study Information Study Number Admission Scheduled Start Study Start [id number] Oct 24 2018 7:34PM 10/26/2018 Oct 26 2018 8:35AM Study Type [facility] Service Left Heart Cath Cardiac Catheterization Admit Source Facility Department Emergency department [facility] Operations Specialist Physician and Clinical Staff Initial Patrick Cooper Skin Carver Almaz Blanchard,TING Recorder Hetal Martino,HUNTING GUIDE TECH2 Scrub Ashia Lopez,RT(R) Procedures Performed Procedure Location (Site) Vessel Name Coronary Angiograms LCA Left Coronary Coronary Angiograms RCA Right Coronary L Heart Cath LV Gram-hand inj. LV LV Ventricle Equipment Time Email Production Consultant Description Size Mfg Part Number Used/Scraped TRANSDUCER, TRUWAVE [id number] 09:24 ADDISON WILLS * Used W/STOCKCOCK *[id number] *[id number] *[id number] 09:24 [employer] BLANKET,WARM AIR CCL * Used *[id number] 09:24 [employer] PACK, CCL CUSTOM * Used *[id number] 09:24 [employer] PACER PEN, SKIN DUAL W/ RULER * Used *[id number] 09:24 [employer] WIRE, 3MMJ .035 180CM 180CM Used *[id number] 09:24 NAMIC MANIFOLD, 4 PORT * Used *[id number] 09:24 [employer] OMNIPAQUE, 350 MG, 150ML 150ML [id number] Used [id number] 09:24 TERUMO MEDICAL SHEATH, FR4 TERUMO (10CM) FR 4 Used *[id number] History: Current Medications Medication Dosage/Unit Route Frequency Last Date/Time Taken ASA Statins (any) Albuterol LASIX Imdur NTG SL Prilosec PREDNISONE History: Allergies Allergy Reaction morphine Hives hydrocodone Hives acetaminophen Nausea metoclopramide Nausea/Vomiting ondansetron Nausea/Vomiting History: Risk Factors Family History of Hypertension Dyslipidemia Previous IL Previous Heart Failure Premature CAD Yes Yes Yes Yes Yes Prior Valve Prior PCI Prior PCIDate Prior CABG Surgery No Yes 07/06/2017 No Cerebrovascular Peripheral Artery Chronic Lung On Dialysis Diabetes Disease Disease Disease No No No No No History: Symptoms/Diagnosis Selection Items Chest pain SOB History: CV Disease Selection Items Cardiomyopathy ischemic History: Arrhythmias Selection Items Atrial fibrillation History: Other Current Smoker Method Packs a Day Years Used Pack Years Yes Cigarettes 1 40 40 Labs Hgb (g/dl) Hct (%) WBC (l/cumm) Platelets (thousands) 11.60-17.00 35.00-51.00 4.00-11.00 150.00-450.00 11.3 35.9 5.9 238 Glucose (mg/dl) BUN (mg/dl) Creatinine (mg/dl) BUN:Creatinine (1:x) 74.00-106.00 7.00-18.00 0.50-1.30 10.00-20.00 149 19 1.1 17.3 Na (meq/l) K (meq/l) 136.00-145.00 3.50-5.10 141 3.8 INR (PTT:PT) 0.90-1.10 1.2 Troponin I (ng/ml) CPK (u/l) CPK-MB (ng/ML) 0.02-0.05 26.00-308.00 0.50-3.60 0.02 39 Not Drawn Medication Medication Total Dose (Bolus/Oral) Medication Total Dosage/Unit 1% XYLOCAINE 20 mL FENTANYL 50 mcg VERSED 2 mg Medications (Bolus/Oral) Medication Time Given Dosage/Unit Administered By Reason VERSED 10/26/2018 9:10:57 AM 1 mg Gustaboy, Almaz 1 mg VERSED given in lab by Almaz Blanchard RN in Right Forearm via Peripheral IV. Ordered by Patrick West. FENTANYL 10/26/2018 9:11:39 AM 25 mcg Lo, Almaz 25 mcg FENTANYL given in lab by Almaz Blanchard RN in Right Forearm via Peripheral IV. Ordered by Patrick Traylor. VERSED 10/26/2018 9:20:40 AM 1 mg Adamy, Almaz 1 mg VERSED given in lab by Almaz Blanchard RN in Right Forearm via Peripheral IV. Ordered by Patrick West. FENTANYL 10/26/2018 9:21:48 AM 25 mcg Adamy, Almaz 25 mcg FENTANYL given in lab by Almaz Blanchard RN in Right Forearm via Peripheral IV. Ordered by Patrick Traylor. 1% XYLOCAINE 10/26/2018 9:21:59 AM 20 mL Patrick Whipple 20 mL 1% XYLOCAINE given in lab by Patrick Whipple in Right Groin via Subcutaneous. Ordered by Patrick Casanova. Medication (Drip) Medication Time Given Dosage/Unit Concentration/Unit Diluent (ml) Solution IV Solutions 10/26/2018 8:41:37 AM 0 mL (IV) 1000 NaCl .9 Patient arrived on IV Solutions in Right Forearm via Peripheral IV. Pump/Drip Flow = 20 ml/hr using N aCl .9. Initial Case Assessment Cardiovascular HR Rhythm NIBP Chest Pain 76 sr 151/91 7 Circulatory - Right Pulses Dorsalis Pedis Femoral 2 2 Scale (0,1,2,3,4,d) Circulatory - Left Pulses Dorsalis Pedis Femoral 2 2 Scale (0,1,2,3,4,d) Neurological State Oriented to time-place- Alert Moves all extremities person Respiration - General Respiration Rate SpO2 (%) O2 (lpm) (B/min) 25 95 2 Final Case Assessment Cardiovascular HR Rhythm NIBP Chest Pain 76 sr 151/89 6 Circulatory - Right Pulses Dorsalis Pedis Femoral 2 2 Scale (0,1,2,3,4,d) Circulatory - Left Pulses Dorsalis Pedis Femoral 2 2 Scale (0,1,2,3,4,d) Neurological State Oriented to time-place- Alert Moves all extremities person Respiration - General Respiration Rate SpO2 (%) O2 (lpm) (B/min) 19 96 2 Chronological Log Time Study Chronological Log 8:34:11 Patient arrived via Bed. Heparin drip discontinued prior to arrival. 8:34:15 Patient Name, D.O.B, / Armband Verified By R.N. 8:35:21 Consent signed by the physician and the patient and verified by the Airport Operations Specialist staff. 8:35:22 Verbal Stimulation=2 Physical Stimulation=2 Airway=2 Respiration=2 TOTAL=8. (0=absent, 1=franco ited, 2=present) 8:35:22 Pre-op and post- op instructions given; patient acknowledges understanding of instructions. Vitals capture started with the following parameters, Patient=Adult, Interval=5 min, Initial Pre zpnav=976 mmHg, 8:39:08 Deflation Rate=5 mmHg, Cuff placed on Right Arm 8:40:27 BQ=565 bpm, CANY=589/91 mmhg, SpO2=89.0 %, Resp=9 B/min 8:41:17 Presedation assessment performed by Airport Operations Specialist RN. 8:41:20 Patient has been NPO for More than 6Hrs. 8:41:21 Skin Breakdown-none 8:41:22 Jase Prominences Protected 8:41:24 A # 20 IV was noted in the Forearm (right). Grade = 0 8:41:37 Patient arrived on IV Solutions in Right Forearm via Peripheral IV. Pump/Drip Flow = 20 ml/h r using NaCl .9. 8:41:57 History and physical on the chart or being dictated. Assessment: Initial Case, HR=76 BPM, Rhythm=sr, FFYR=810/91 mmhg, Chest Pain=7 Right Pulses: Zane Ped=2, Femoral=2 8:42:01 Left Pulses: Zane Ped=2, Femoral=2 Neurological: State=Alert, Ox3, [place] Respiration: Resp=25 B/min, SpO2=95 %, O2=2 lpm 8:44:52 HR=76 bpm, DYYH=946/95 mmhg, SpO2=92.0 %, Resp=38 B/min, Pain=7, Mota=2 8:49:17 Reference ECG taken 8:49:53 HR=72 bpm, HUXI=590/97 mmhg, SpO2=96.0 %, Resp=39 B/min 8:52:09 paged 8:54:54 HR=46 bpm, MWNI=750/92 mmhg, SpO2=92.0 %, Resp=36 B/min 8:55:46 Pressure channel 1 zeroed. 8:55:59 Bilateral groins prepped with 2% chlorhexidine, and draped after a 3 minute waiting time. 8:59:53 HR=47 bpm, HNLN=444/94 mmhg, SpO2=92.0 %, Resp=36 B/min 8:59:55 MD responded 9:04:50 HR=49 bpm, UCZI=462/93 mmhg, SpO2=93.0 %, Resp=35 B/min 9:09:53 HR=72 bpm, YRLL=149/89 mmhg, SpO2=94.0 %, Resp=15 B/min 9:10:46 MD arrived. 9:10:57 1 mg VERSED given in lab by Almaz Blanchard, RN in Right Forearm via Peripheral IV. Ordered by Patrick Whipple. 25 mcg FENTANYL given in lab by Almaz Blanchard, TING in Right Forearm via Peripheral IV. Ordered by Sarabjit, 9:11:39 Patrick. 9:14:52 HR=43 bpm, KVKW=612/81 mmhg, SpO2=97.0 %, Resp=32 B/min 9:19:53 HR=71 bpm, QPQE=705/85 mmhg, SpO2=96.0 %, Resp=16 B/min 9:20:40 1 mg VERSED given in lab by Almaz Blanchard, TING in Right Forearm via Peripheral IV. Ordered by Patrick Whipple. Time Out. Correct patient, correct procedure, correct physician, labs, allergies, and equipment verified with petroleum laboratory technician 9::45 team present. Fire risk assesment completed (see hard stop sheet for coding). Time Out Concu rred by MD and individual staff in procedure. 25 mcg FENTANYL given in lab by Almaz Blanchard, TING in Right Forearm via Peripheral IV. Ordered by Sarabjit, 9::48 Patrick. 9::59 Case Start 20 mL 1% XYLOCAINE given in lab by Patrick Whipple in Right Groin via Subcutaneous. Ordered by Sarabjit, 9::59 Patrick. 9:24:11 Access site was Right Femoral Artery. 9:24:13 A SHEATH, FR4 TERUMO (10CM) FR 4 was advanced into the Fem Art (right) using the Percutaneou s technique. A JR 4.0 INFINITI CATHETER FR 4 was advanced over a wire. OMNIPAQUE, 350 MG, 150ML 150ML was us ed for :24:45 injections. 9:24:54 HR=70 bpm, KLBB=311/110 mmhg, SpO2=96.0 %, Resp=15 B/min Recorded Pressure: LV, HR=60, Condition=Condition 1 9:25:16 (Left Ventricle) LV 155/25/48 9:25:36 The LV was manually injected with 10 cc's and visualized. OMNIPAQUE, 350 MG, 150ML 150ML use d. Recorded Pressure: LV, Ao, HR=89, Condition=Condition 1 9:25:44 (Left Ventricle) LV 148/39/53, (Aorta) Ao 147/85/112 9:26:05 The RCA was injected and visualized at various angles. OMNIPAQUE, 350 MG, 150ML 150ML used. 9:28:19 Catheter was removed A JL 4.0 INFINITI CATHETER FR 4 was advanced over a wire. OMNIPAQUE, 350 MG, 150ML 150ML was us ed for 9:28:20 injections. 9:29:30 The LCA was injected and visualized at various angles. OMNIPAQUE, 350 MG, 150ML 150ML used. 9:29:53 HR=81 bpm, KNTH=916/85 mmhg, SpO2=97.0 %, Resp=21 B/min 9:32:05 Catheter was removed 9:32:40 Activated Clotting Time Drawn 9:32:52 Case End (Physician broke scrub) 9:34:48 ACT (Normal Range 90-180) = 138 9:34:56 HR=78 bpm, SARP=862/90 mmhg, SpO2=98 %, Resp=27 B/min 9:35:37 Sheath removed; pressure applied to access site. 9:39:57 HR=51 bpm, CLDX=387/94 mmhg, SpO2=97.0 %, Resp=23 B/min 9:44:52 HR=39 bpm, KSJV=061/94 mmhg, SpO2=94.0 %, Resp=24 B/min 9:49:51 QN=910 bpm, QHBO=913/98 mmhg, SpO2=92.0 %, Resp=35 B/min 9:54:59 YR=435 bpm, XRRU=282/89 mmhg, SpO2=94.0 %, Resp=30 B/min 9:57:11 Hemostasis obtained. 9:57:57 Sterile dressing applied to site 9:58:19 No case complications noted. 9:58:19 Cine recording checked. 9:58:21 Bedside Report will be given. Assessment: Final Case, HR=76 BPM, Rhythm=sr, MALB=342/89 mmhg, Chest Pain=6 Right Pulses: Zane Ped=2, Femoral=2 9:58:26 Left Pulses: Zane Ped=2, Femoral=2 Neurological: State=Alert, Ox3, [place] Respiration: Resp=19 B/min, SpO2=96 %, O2=2 lpm 9:59:27 Vitals capture stopped. 10:01:46 Patient moved to bed. 10:04:42 A Left Heart Cath was performed. 10:05:07 [facility] End Study - Contrast Media Used In Study Contrast Total Opened (mL) Total Used (mL) Total Wasted (mL) Omnipaque 350 20 20 0 End Study - Maximum Contrast Load Max Contrast Load (mL) 365.9 End Study - Radiation Exposure Fluoro Time Fluoro Dose (mGy) Cine Dose (uGym2) (minutes) 1.2 89 4870 End Study - Sheaths Sheaths Pulled By Sheath Hold Time (min) Ashia Lopez End Study - Patient Disposition Complications Transferred To Interventional Outcome No Critical Care Bed No attempt made
--- NOTE | 2018-10-26 10:17 | MA ---
cc: Patrick Whipple MD, Ahmad MD DATE: 10/26/2018 PROCEDURE PERFORMED: Left heart catheterization, left ventriculography, coronary angiography. INDICATION: Unstable angina, class I angina, [place] Heart Association class IV congestive heart failure, coronary artery disease, multiple cardiac risk factors, chronic renal insufficiency. DESCRIPTION OF PROCEDURE: The patient was brought to the cardiac catheterization laboratory, prepped and draped in the usual sterile fashion. 10 mL of 1% lidocaine was used to locally anesthetize the right common femoral artery. A 4-Spanish sheath was placed in right common femoral artery. A 4-Spanish JR4 and JL4 catheters were used to perform left and right coronary angiography, left ventriculography. FINDINGS: LV pressure: 130/30-39. EF imaging is suboptimal. My best estimation EF is about 35% to 40%. Left ventricle appears to be upper limits of normal, mildly dilated fluoroscopically. The right coronary artery is dominant. There is a 50% stenosis in the mid to distal segment. The proximal segment has diffuse moderate disease at 40% angiographically. There appears to be a stent in the proximal segment, which has mild diffuse in-stent stenosis. The [id number] collaterals to the mid to distal AV groove left circumflex vessel. This vessel is at most a 2.0 mm vessel, mostly in the AV groove with a very minimal amount appearing to supply the myocardium. The left main coronary artery has an ostial 30% stenosis seen in the HANNON caudal view. I do not appreciate this stenosis in any of the other views. Left circumflex vessel is occluded in the proximal mid segment, after a large first obtuse marginal vessel. The first obtuse marginal vessel has a long ostial proximal 60% stenosis. There is a stent in the proximal circumflex, which approaches this obtuse marginal vessel at the ostium, which has mild diffuse in-stent stenosis. The LAD is a large transapical vessel, reference vessel diameter of 4.0 mm in the mid segment. There is relative stenosis in a long stented segment in the proximal mid segment with mild diffuse in-stent stenosis; however, this segment, compared to the more mid segment, appears to have a relative stenosis of probably 20% to 30%. CONCLUSION: 1. Moderate to severe 2-vessel coronary artery disease in a right dominant system as detailed above. 2. Moderate severe left ventricular systolic function of 35% to 40%. 3. Markedly elevated left ventricular end-diastolic pressure of 40, consistent with severe diastolic congestive heart failure. 4. Recommend renal consult to optimize diuretic therapy. 5. The patient's condition is markedly guarded, given her markedly elevated left ventricular end-diastolic pressure. Again, I strongly advised the patient to stop smoking. She understands my recommendation. Patrick Whipple MD AWSendy/rh , 09:43 AM , 09:51 AM
[2018-10-26] MEDS: Lidocaine 5% Patch T-DERMAL SCH (10:23)
[2018-10-26] MEDS: Furosemide 20 MG Tablet PO SCH ×2 (10:24→17:25)
[2018-10-26] MEDS: Spironolactone 25 MG Tablet PO SCH ×2 (10:24→20:43)
[2018-10-26] MEDS: Senna/Docusate Sodium 8.6/50 MG Tablet PO SCH ×2 (10:24→20:43)
[2018-10-26] MEDS ORDERED: Ketorolac Inj 30 MG/ML (IVP) Vial IV.PUSH ONE (14:30)
--- NOTE | 2018-10-26 14:34 | P.PN ---
Subjective Interval history: Nursing denies any acute changes overnight except for the patient complaining of pain, at times getting tearful. Patient is now status post heart cath, discuss with cardiology, patient does not have any obvious stenotic lesions that do not have any compensated collaterals. LV EDP is extremely high and may be the source of her pain. Patient says that the Lidoderm has not helped her chest pain. Says that the pain keeps her up at night, cannot sleep. Physical Exam Vital signs: Vital Signs 10/25/18 15:00 10/25/18 16:00 10/25/18 17:00 Temperature 98.8 F Pulse Rate 91 H 83 87 Respiratory Rate 20 Blood Pressure 154/75 H Pulse Oximetry 93 L 10/25/18 18:00 10/25/18 19:00 10/25/18 20:00 Temperature 99.1 F Pulse Rate 86 85 82 Respiratory Rate 24 Blood Pressure 139/69 Pulse Oximetry 98 10/25/18 21:00 10/25/18 22:00 10/25/18 23:00 Temperature Pulse Rate 84 84 80 Respiratory Rate Blood Pressure Pulse Oximetry 10/26/18 00:00 10/26/18 01:00 10/26/18 02:00 Temperature 98.2 F Pulse Rate 87 79 80 Respiratory Rate 22 Blood Pressure 154/87 H Pulse Oximetry 98 10/26/18 03:00 10/26/18 04:00 10/26/18 05:00 Temperature 98.0 F Pulse Rate 89 90 91 H Respiratory Rate 24 Blood Pressure 151/77 H Pulse Oximetry 98 10/26/18 07:00 10/26/18 08:00 10/26/18 09:38 Temperature 97.4 F L Pulse Rate 90 92 H Respiratory Rate 16 Blood Pressure 153/84 H Pulse Oximetry 94 L 95 10/26/18 10:15 10/26/18 10:30 10/26/18 10:45 Temperature 98.3 F Pulse Rate 88 89 84 Respiratory Rate 16 16 16 Blood Pressure 127/82 134/72 138/80 Pulse Oximetry 100 100 94 L 10/26/18 11:00 10/26/18 11:30 10/26/18 12:00 Temperature Pulse Rate 82 87 85 Respiratory Rate 16 16 16 Blood Pressure 137/78 149/80 H 137/78 Pulse Oximetry 98 95 98 Intake & Output 10/25/18 10/26/1810/26/18 18:59 06:59 18:59 Intake Total 1078 / 1078 760 / 760 Output Total 500 / 500 550 / 550 Balance 578 / 578 210 / 210 Weight 84.5 kg Intake: IV 478 / 478 Heparin/D5W 25,000 U/250 mL 25, 265 / 265 000 unit In 250 ml @ Per Protocol IV.CONT TITRATE PRN Rx #:[id number] NS Inj 1,000 ML @ 42 mls/hr IV. 213 / 213 CONT .[id number] [facility] Rx#:[id number] Oral 600 / 600 760 / 760 Output: Urine 500 / 500 550 / 550 Other: Date of Last Bowel Movement 10/24/18 10/26/18 # Bowel Movements 0 1 Narrative: Patient is resting comfortably when I see her from outside the room, when I walk into the room, she starts to cry Clear lungs bilaterally, unlabored breathing Heart sounds regular rate and rhythm Has left pectoral tenderness to palpation No lower extremity edema Awake and alert, eventually gets into a tearful mood Results - Labs CBC & Chem 7: 10/25/18 10:06 10/26/18 04:55 Laboratory Results - last 24 hr 10/25/18 10/26/18 10/26/18 18:45 04:55 04:55 APTT 60.8 H 67.7 H Sodium 140 Potassium 3.9 Chloride 109 H Carbon Dioxide 21.2 Anion Gap 10 BUN 21 H Creatinine 1.10 H Estimated GFR 52 L Random Glucose 126 H Calcium 8.4 L Assessment and Plan - Plan 53-year-old female admitted with chest pain. Recent admit 10/12/18 for same, s/p eval by Cardiology w/ no intervention at that time. PMH , hx of ICD placement for cardiomyopathy. Chest pain CAD Definitely has a MSK component if not the only reason, d-dimer within normal limits -No overt or impending ACS based upon heart cath -Continue aspirin, statin -We will attempt Toradol High LVEDP Cardiomyopathy Combined chronic systolic + diastolic CHF based upon heart cath -ICD in 2014 single chamber -Continue home BiDil, furosemide, spironolactone Acute kidney injury Likely secondary to dehydration -Improving, continue IV fluids -bmp in AM
--- NOTE | 2018-10-26 16:08 | MB ---
cc: Curtis Philip MD DATE: 10/26/2018 REASON FOR CONSULTATION: Acute renal failure management with diuretic management. HISTORY OF PRESENT ILLNESS: This is a 53-year-old female with a history of hypertension, ischemic cardiomyopathy, CHF with previous AICD and CAD status post cardiac stents. The patient also has history of smoking with tobacco use. The patient was admitted on 10/24/2018 with complaints of chest pains. She was seen with cardiology. The patient has had previous cardiac catheterizations which were negative for any findings of stenosis. She had a repeat cardiac catheterization done earlier this morning that showed moderate disease with no intervention necessary and medical management was deemed appropriate. During the cardiac catheterization today she was found to have an ejection fraction of 35%. She also had a left ventricular end-diastolic pressure of 40, suggestive of volume overload. Given these findings, nephrology was consulted for further evaluation of diuretic management. The patient tolerated her procedure well. She has been resting in bed at this time. She does have some ongoing pain in her left chest wall and this has been attributed to a possible musculoskeletal component per cardiology and the primary team. The patient had received a dose of Toradol earlier regarding her post-cath. She has been maintained on IV fluids and she is on normal saline at 42 mL per hour. She also is currently on Lasix 20 mg daily as well as Aldactone 25 mg b.i.d. Regarding her renal function, she had a previous creatinine of 1.05 earlier in the month, her creatinine at time of admission was 1.3, which decreased to a level of 1.1 today. Otherwise she is resting well, she has no acute complaints. Nephrology is consulted for further evaluation. REVIEW OF SYSTEMS: The patient has some ongoing left chest wall pain. No nausea, no vomiting, no diarrhea. No chest pains, no dysuria otherwise. No dizziness or loss of consciousness. PAST MEDICAL HISTORY: Includes AFib, cardiomyopathy, dyslipidemia. The patient with AICD with pacemaker. Also tobacco use. PAST SURGICAL HISTORY: Includes coronary stents and left and right heart catheterizations, as well as ICD placement. SOCIAL HISTORY: The patient is a current daily smoker. No alcohol or drug use. FAMILY HISTORY: No history of diabetes or CAD. PHYSICAL EXAMINATION: VITAL SIGNS: At time of evaluation, temperature 98.3, pulse 85, blood pressure 137/78, pulse oximetry 98% on room air. GENERAL: Awake, alert, oriented, in no apparent distress. NECK: Soft, supple. CARDIAC: Regular rate and rhythm. PULMONARY: Clear to auscultation. ABDOMEN: Soft, nontender, nondistended. EXTREMITIES: No edema. The patient with tenderness in the left chest wall. LABORATORY DATA: Sodium 140, potassium 3.9, chloride 109, bicarbonate 21.2, BUN 21, creatinine 1.1, glucose of 126. Albumin level of 3.0. White count 5.9, hemoglobin 11.3, hematocrit 35.9 with platelet count of 238. ASSESSMENT AND PLAN: 1. Acute kidney injury. The patient had a creatinine of 1.3 at admission. Her previous creatinine was 1.05 earlier in the month. Her creatinine improved to a level slightly down to 1.1 today. Her renal function appears otherwise stable. She did have a cardiac catheterization earlier today and she is currently on IV fluids with normal saline at 42 mL an hour. I would recommend to continue fluids until tomorrow morning and then fluids can be stopped, this for protection post-cardiac catheterization of contrast exposure. Her creatinine otherwise is stable and her blood pressure is stable as well. Should this be her baseline creatinine this corresponds to a GFR in the 50s to 60s, we will check a renal ultrasound. Otherwise her renal function appears stable at this point. 2. Congestive heart failure with coronary artery disease. The patient with cardiac catheterization earlier today with 35% ejection fraction. There was a concern for volume overload with findings of the left ventricular end-diastolic pressure of 40 or greater. At this point, the patient is on Lasix 20 mg daily as well as Aldactone 25 mg b.i.d. Will increase her Lasix dose gently to 20 mg b.i.d. This in combination with stopping her IV fluids in the morning should help some of her volume status. Clinically, she has no signs of any volume overloaded with no peripheral edema and no shortness of breath. Continue follow up with cardiology. 3. Chest pains. The patient was prescribed a dose of Toradol earlier. Avoid any NSAIDs as possible. We will stop Toradol at this time, the patient had been receiving Dilaudid and may receive p.r.n.; however, caution with narcotics here. Continue follow up with primary team. 4. Hypertension. Blood pressure is stable. Continue with medications. 5. Atrial fibrillation. Continue follow up with cardiology. Heart rate is stable. 6. Tobacco use. The patient counseled on tobacco cessation. MD CARIDAD ValenteP/ , 03:26 PM , 03:36 PM [email or web address]
[2018-10-26] MEDS: HYDROmorphone PF Inj 0.5 MG/0.5 ML Syringe IV.PUSH PRN ×2 (16:47→22:51)
--- NOTE | 2018-10-26 17:13 | US ---
EXAM DATE: 10/26/2018 4:36 PM EST AGE/SEX: 53 years / Female INDICATIONS: Increased lab values. CLINICAL DATA: This is the patient's initial encounter. Patient reports that signs and symptoms have been present for 1 day and indicates a pain score of 0/10. MEDICAL/SURGICAL HISTORY: . Atrial fibrillation. Cardiomyopathy. Hyperlipidemia. Pacemaker. Ca rdiac catheterization. COMPARISON: No prior exams available for comparison. MEASUREMENTS: Right Kidney:__9.9 x 3.9 x 4.3 cm Left Kidney:__11.2 x 4.2 x 5.3 cm FINDINGS: Right Kidney: Increased echogenicity. No mass or hydronephrosis. Left Kidney: Increased echogenicity. No mass or hydronephrosis. Bladder: Decompressed. Not well evaluated. Other: Trace ascites with fluid primarily along the inferior margin of the liver. CONCLUSION: 1. Echogenic kidneys consistent with medical renal disease. 2. No sonographic evidence for obstructive uropathy. 3. Very trace ascites. Electronically signed by: Geoffrey Mcgarry MD Board Certified Radiologist 10/26/2018 5:12 PM DESTINY Gomez
[2018-10-27] MEDS: Sod Chloride 0.9% Inj 1,000 ML IV.CONT SCH ×2 (03:00→11:28)
[2018-10-27] MEDS: Isosorbide Mononitrate 60 MG ER 24HR Tablet (Imdur) PO SCH (06:04)
[2018-10-27] MEDS: HYDROmorphone PF Inj 0.5 MG/0.5 ML Syringe IV.PUSH PRN ×2 (06:04→12:30)
[2018-10-27 06:47] LABS: Baso % (Auto) 0.7 % (0.0-2.0); Eos # (Auto) 0.1 th/mm3 (0.0-0.4); Eos % (Auto) 1.1 % (0.0-4.0); Hematocrit 36.5 % (35.0-46.0); Hemoglobin 11.7 gm/dL (11.6-15.3); Lymph # (Auto) 1.7 th/mm3 (1.0-4.8); Lymph % (Auto) 29.7 % (9.0-44.0); Mean Corpuscular HGB Conc 32.1 % (32.0-36.0); Mean Corpuscular Hemoglobin 24.4 pg (27.0-34.0); Mean Corpuscular Volume 76.2 fL (80.0-100.0); Mean Platelet Volume 8.6 fL (7.0-11.0); Mono # (Auto) 0.6 th/mm3 (0.0-0.9); Mono % (Auto) 11.4 % (0.0-8.0); Neut # (Auto) 3.2 th/mm3 (1.8-7.7); Neut % (Auto) 57.1 % (16.0-70.0); Platelet Count 215 th/mm3 (150-450); Red Blood Count 4.79 mil/mm3 (4.00-5.30); White Blood Count 5.6 th/mm3 (4.0-11.0)
[2018-10-27 07:05] LABS: Albumin 3.3 g/dL (3.4-5.0); Anion Gap 12 meq/L (5-15); Aspartate Aminotransferase 15 U/L (15-37); Blood Urea Nitrogen 19 mg/dL (7-18); Calcium 8.7 mg/dL (8.5-10.1); Carbon Dioxide 20.4 meq/L (21.0-32.0); Chloride 108 meq/L (98-107); Glomerular Filtration Rate 58 mL/min (>89); Glucose,Random 101 mg/dL (74-106); Potassium 4.2 meq/L (3.5-5.1); Sodium 140 meq/L (136-145)
[2018-10-27 07:06] LABS: Alanine Aminotransferase 19 U/L (10-53)
[2018-10-27 07:09] LABS: Alkaline Phosphatase 101 U/L (45-117); Total Protein 7.5 g/dL (6.4-8.2)
[2018-10-27] MEDS: Spironolactone 25 MG Tablet PO SCH (09:11)
[2018-10-27] MEDS: Furosemide 20 MG Tablet PO SCH ×2 (09:12→09:13)
[2018-10-27] MEDS: Lidocaine 5% Patch T-DERMAL SCH (09:13)
[2018-10-27] MEDS: Senna/Docusate Sodium 8.6/50 MG Tablet PO SCH (09:14)
[2018-10-27] MEDS ORDERED: HYDROmorphone PF Inj 0.5 MG/0.5 ML Syringe IV.PUSH ONE (10:00)
--- NOTE | 2018-10-27 11:11 | P.PNCA ---
Subjective Interval history: c/o dyspnea, orthopnea slightly worse Medications and Allergies Active Medications: Active Medications Al Hydroxide/Mg Hydroxide (Milk Of Magnesia Liq) 30 ml PO Q12H PRN PRN Reason: Mild Constipation Last Admin: 10/25/18 15:34 Dose: 30 ml Alprazolam (Xanax) 1 mg PO BID [facility] Aspirin (Ecotrin) 325 mg PO DAILY [facility] Last Admin: 10/27/18 09:12 Dose: 325 mg Atorvastatin Calcium (Lipitor) 10 mg PO DAILY [facility] Last Admin: 10/27/18 09:13 Dose: 10 mg Bisacodyl (Dulcolax Supp) 10 mg RECTAL DAILY PRN PRN Reason: SEVERE CONSITIPATION Fluticasone Propionate (Flonase Nasal [place]) 2 spray EACH NARE DAILY [facility] Last Admin: 10/27/18 09:12 Dose: 2 spray Furosemide (Lasix) 20 mg PO DAILY [facility] Last Admin: 10/27/18 09:12 Dose: 20 mg Furosemide (Lasix) 20 mg PO BID@0900,1800 [facility] Last Admin: 10/27/18 09:13 Dose: Not Given Nitroglycerin/Dextrose (Nitroglycerin Drip Premix) 50 mg in 250 mls @ 1.5 mls/ hr IV.CONT TITRATE PRN; Protocol PRN Reason: See Protocol Last Titration: 10/24/18 19:30 Dose: 0 mcg/min, 0 mls/hr Sodium Chloride (Ns Inj) 1,000 mls @ 42 mls/hr IV.CONT .[id number] [facility] Last Infusion: 10/27/18 09:32 Dose: 0 mls/hr Isosorbide Mononitrate (Imdur) 120 mg PO DAILY@0700 [facility] Last Admin: 10/27/18 06:04 Dose: 120 mg Lactulose (Lactulose Liq) 30 ml PO DAILY PRN PRN Reason: SEVERE CONSITIPATION Lidocaine HCl (Lidoderm 5% Patch.12 Hr) 1 patch T-DERMAL DAILY [facility] Last Admin: 10/27/18 09:13 Dose: 1 patch Lorazepam (Ativan Inj) 1 mg IV.PUSH Q2H PRN PRN Reason: ANXIETY/CHEST PAIN Last Admin: 10/27/18 09:30 Dose: 1 mg Patch Removal (Remove Old Patch) 1 each T-DERMAL HS [facility] Last Admin: 10/26/18 20:44 Dose: 1 each [place]: Omeprazole 10 (Mg By Mouth Daily) 1 each PO DAILY [facility] Senna/Docusate Sodium (Ximena-Colace) 1 tab PO BID [facility] Last Admin: 10/27/18 09:14 Dose: 1 tab Sennosides (Senokot) 17.2 mg PO Q12H PRN PRN Reason: Moderate Constipation Sodium Chloride (Ns Flush) 2 ml IV.FLUSH BID [facility] Last Admin: 10/26/18 20:43 Dose: 2 ml Sodium Chloride (Ns Flush) 2 ml IV.FLUSH PRN PRN PRN Reason: FLUSH AFTER USING IV ACCESS Spironolactone (Aldactone) 25 mg PO BID [facility] Last Admin: 10/27/18 09:11 Dose: 25 mg Zolpidem Tartrate (Ambien) 10 mg PO HS PRN PRN Reason: Insomnia Last Admin: 10/26/18 20:43 Dose: 10 mg Allergies Allergy/AdvReac Type Severity Reaction Status Date / Time hydrocodone Allergy Severe Hives Verified 10/24/18 17:37 morphine Allergy Severe Hives Verified 10/24/18 17:37 acetaminophen AdvReac Severe Nausea Verified 10/24/18 17:37 metoclopramide [From Reglan] AdvReac Severe Nausea/Vomi Verified 10/24/18 17:37 ting ondansetron AdvReac Severe Nausea/Vomi Verified 10/24/18 17:37 ting Home Medications Medication Instructions Recorded Confirmed Type albuterol sulfate 2 puff INHALATION Q4-6H PRN 10/11/18 10/24/18 History alprazolam 1 mg PO BID 10/11/18 10/24/18 History aspirin 325 mg PO DAILY 10/11/18 10/24/18 History atorvastatin 10 mg PO DAILY 10/11/18 10/24/18 History fluticasone 2 spray INTRANASAL DAILY 10/11/18 10/24/18 History furosemide 20 mg PO DAILY 10/11/18 10/24/18 History isosorbide mononitrate 120 mg PO DAILY 10/11/18 10/24/18 History nitroglycerin 0.4 mg SUBLINGUAL Q5-15M PRN 10/11/18 10/24/18 History omeprazole 10 mg PO DAILY 10/11/18 10/24/18 History oxycodone-acetaminophen 1 tab PO Q6H PRN 10/11/18 10/24/18 History spironolactone 25 mg PO BID 10/11/18 10/24/18 History zolpidem 10 mg PO HS PRN 10/11/18 10/24/18 History Physical Exam Vital signs: Vital Signs 10/26/18 11:30 10/26/18 12:00 10/26/18 13:00 Temperature Pulse Rate 87 85 80 Respiratory Rate 16 16 Blood Pressure 149/80 H 137/78 Pulse Oximetry 95 98 10/26/18 14:00 10/26/18 14:30 10/26/18 15:00 Temperature Pulse Rate 87 82 Respiratory Rate 16 Blood Pressure Pulse Oximetry 10/26/18 16:00 10/26/18 17:00 10/26/18 17:35 Temperature 97.7 F Pulse Rate 88 82 Respiratory Rate 16 16 Blood Pressure 139/68 Pulse Oximetry 94 L 10/26/18 18:00 10/26/18 19:00 10/26/18 20:00 Temperature 97.7 F Pulse Rate 85 85 88 Respiratory Rate 16 Blood Pressure 138/72 Pulse Oximetry 95 10/26/18 21:00 10/26/18 22:00 10/26/18 22:53 Temperature 98 F Pulse Rate 82 78 83 Respiratory Rate 16 Blood Pressure 143/69 H Pulse Oximetry 99 10/26/18 22:56 10/26/18 23:00 10/27/18 00:00 Temperature Pulse Rate 85 74 Respiratory Rate Blood Pressure Pulse Oximetry 96 10/27/18 01:00 10/27/18 02:00 10/27/18 03:00 Temperature Pulse Rate 70 74 81 Respiratory Rate Blood Pressure Pulse Oximetry 10/27/18 04:00 10/27/18 05:00 10/27/18 06:00 Temperature 98.2 F Pulse Rate 85 85 84 Respiratory Rate 16 Blood Pressure 146/75 H Pulse Oximetry 99 10/27/18 07:00 10/27/18 08:00 10/27/18 09:00 Temperature 97.5 F L Pulse Rate 81 76 72 Respiratory Rate 18 Blood Pressure 149/78 H Pulse Oximetry 95 10/27/18 09:13 10/27/18 10:00 Temperature Pulse Rate 78 Respiratory Rate Blood Pressure Pulse Oximetry 95 Intake & Output 1210/27/18 10/27/18 18:59 06:59 18:59 Intake Total 757 / 757 740 / 740 125 / 125 Output Total 500 / 500 250 / 250 Balance 257 / 257 490 / 490 125 / 125 Weight 83 kg Intake: IV 157 / 157 500 / 500 125 / 125 NS Inj 1,000 ML @ 42 mls/hr IV. 157 / 157 500 / 500 125 / 125 CONT .[id number] [facility] Rx#:[id number] Oral 600 / 600 240 / 240 Output: Urine 500 / 500 250 / 250 Other: # Voids 2 # Incontinent Voids 1 Date of Last Bowel Movement 10/27/18 # Bowel Movements 0 - Constitutional no acute distress - Routine HEENT Exam Head: Present: normocephalic - Routine Neck Exam Present: supple - Routine Respiratory Exam Present: decreased breath sounds - Routine Cardiovascular Exam Present: S1, S2 - Routine Abdominal Exam Present: soft - Routine Extremities Exam Comments: no peter Results 10/27/18 06:23 10/27/18 06:23 Cardiac Enzymes 10/27/18 10/27/18 Range/Units 06:23 06:23 AST 15 (15-37) U/L B-Natriuretic Peptide 1131 H (0-100) pg/mL Coagulation 10/25/18 10/25/18 10/26/18 Range/Units 12:54 18:45 04:55 APTT 61.4 H D 60.8 H 67.7 H (23.4-31.7) sec B-Natriuretic Peptide (0-100) pg/mL 10/27/18 Range/Units 06:23 APTT (23.4-31.7) sec B-Natriuretic Peptide 1131 H (0-100) pg/mL CBC 10/25/18 10/27/18 Range/Units 10:06 06:23 WBC 5.9 5.6 (4.0-11.0) th/mm3 RBC 4.64 4.79 (4.00-5.30) mil/mm3 Hgb 11.3 L 11.7 (11.6-15.3) gm/dL Hct 35.9 36.5 (35.0-46.0) % Plt Count 238 215 (150-450) th/mm3 Neut # (Auto) 3.0 3.2 (1.8-7.7) th/mm3 Lymph # (Auto) 2.4 1.7 (1.0-4.8) th/mm3 [place] # (Auto) 0.5 0.6 (0.0-0.9) th/mm3 Eos # (Auto) 0.0 0.1 (0.0-0.4) th/mm3 Baso # (Auto) 0.0 0.0 (0.0-0.2) th/mm3 Comprehensive Metabolic Panel 10/26/18 10/27/18 Range/Units 04:55 06:23 Sodium 140 140 (136-145) meq/L Potassium 3.9 4.2 (3.5-5.1) meq/L Chloride 109 H 108 H (98-107) meq/L Carbon Dioxide 21.2 20.4 L (21.0-32.0) meq/L BUN 21 H 19 H (7-18) mg/dL Creatinine 1.10 H 1.00 (0.50-1.00) mg/dL Calcium 8.4 L 8.7 (8.5-10.1) mg/dL AST 15 (15-37) U/L ALT 19 (10-53) U/L Alkaline Phosphatase 101 (45-117) U/L Total Protein 7.5 (6.4-8.2) g/dL Albumin 3.3 L (3.4-5.0) g/dL Intake and Output 10/26/18 10/27/18 10/27/18 22:59 06:59 14:59 Intake Total 757 / 757 740 / 740 125 / 125 Output Total 500 / 500 250 / 250 Balance 257 / 257 490 / 490 125 / 125 Intake: IV 157 / 157 500 / 500 125 / 125 NS Inj 1,000 ML @ 42 mls/hr IV. 157 / 157 500 / 500 125 / 125 CONT .[id number] [facility] Rx#:[id number] Oral 600 / 600 240 / 240 Output: Urine 500 / 500 250 / 250 Other: # Voids 2 # Incontinent Voids 1 Date of Last Bowel Movement 10/27/18 # Bowel Movements 0 Weight 83 kg - Imaging and Cardiology Imaging: Impressions Abdomen/Bladder Ultrasound 10/26/18 15:26 CONCLUSION: 1. Echogenic kidneys consistent with medical renal disease. 2. No sonographic evidence for obstructive uropathy. 3. Very trace ascites. Assessment and Plan - Assessment (1) Cardiomyopathy Code(s): I42.9 - Cardiomyopathy, unspecified Status: Acute (2) Cardiorenal syndrome with renal failure Code(s): I13.10 - Hypertensive heart and chronic kidney disease without heart failure, with stage 1 through stage 4 chronic kidney disease, or unspecified chronic kidney disease; N19 - Unspecified kidney failure Status: Acute (3) CAD (coronary artery disease) Code(s): I25.10 - Atherosclerotic heart disease of [place] coronary artery without angina pectoris Status: Acute (4) Diastolic dysfunction Code(s): I51.9 - Heart disease, unspecified Status: Acute (5) ACS (acute coronary syndrome) Code(s): I24.9 - Acute ischemic heart disease, unspecified Status: Acute (6) Chest pain Code(s): R07.9 - Chest pain, unspecified Status: Acute (7) Tobacco abuse Code(s): Z72.0 - Tobacco use Status: Acute - Plan 1.) CAD - continue aspirin, lipitor, suspect angina secondary to severely elevated lvedp=40 mmhg, severely elevated wall tension and markedly increased myocardial oxygen demand in setting of chronic cad; patient strongly advised to stop smoking 2.) CHF - mostlly due to severe diastolic dysfunction with evidence of cardio- renal syndrome, patient reports to me worse dyspnea and orthopnea s/o fluid challenge for arf, i have consulted case management for transfer to [facility] for heart transplant evaluation, will continue to monitor bnp/bmp, f /e renal recs; beta blockers held due to decompensated chf, however may possibly improve diastolic dysfunction, response uncertain
--- NOTE | 2018-10-27 12:54 | P.PNNP ---
Subjective Interval history: Anxious regarding medical condition, tearful this morning Reports dyspnea today Physical Exam Vital signs: Vital Signs 10/26/18 13:00 10/26/18 14:00 10/26/18 14:30 Temperature Pulse Rate 80 87 Respiratory Rate 16 Blood Pressure Pulse Oximetry 10/26/18 15:00 10/26/18 16:00 10/26/18 17:00 Temperature 97.7 F Pulse Rate 82 88 82 Respiratory Rate 16 Blood Pressure 139/68 Pulse Oximetry 94 L 10/26/18 17:35 10/26/18 18:00 10/26/18 19:00 Temperature Pulse Rate 85 85 Respiratory Rate 16 Blood Pressure Pulse Oximetry 10/26/18 20:00 10/26/18 21:00 10/26/18 22:00 Temperature 97.7 F Pulse Rate 88 82 78 Respiratory Rate 16 Blood Pressure 138/72 Pulse Oximetry 95 10/26/18 22:53 10/26/18 22:56 10/26/18 23:00 Temperature 98 F Pulse Rate 83 85 Respiratory Rate 16 Blood Pressure 143/69 H Pulse Oximetry 99 96 10/27/18 00:00 10/27/18 01:00 10/27/18 02:00 Temperature Pulse Rate 74 70 74 Respiratory Rate Blood Pressure Pulse Oximetry 10/27/18 03:00 10/27/18 04:00 10/27/18 05:00 Temperature 98.2 F Pulse Rate 81 85 85 Respiratory Rate 16 Blood Pressure 146/75 H Pulse Oximetry 99 10/27/18 06:00 10/27/18 07:00 10/27/18 08:00 Temperature 97.5 F L Pulse Rate 84 81 76 Respiratory Rate 18 Blood Pressure 149/78 H Pulse Oximetry 95 10/27/18 09:00 10/27/18 09:13 10/27/18 10:00 Temperature Pulse Rate 72 78 Respiratory Rate Blood Pressure Pulse Oximetry 95 10/27/18 12:00 Temperature 97.7 F Pulse Rate 82 Respiratory Rate 14 Blood Pressure 148/80 H Pulse Oximetry 99 Intake & Output 10/26/18 10/27/18 10/27/18 18:59 06:59 18:59 Intake Total 757 / 757 740 / 740 125 / 125 Output Total 500 / 500 250 / 250 Balance 257 / 257 490 / 490 125 / 125 Weight 83 kg Intake: IV 157 / 157 500 / 500 125 / 125 NS Inj 1,000 ML @ 42 mls/hr IV. 157 / 157 500 / 500 125 / 125 CONT .[id number] [facility] Rx#:[id number] Oral 600 / 600 240 / 240 Output: Urine 500 / 500 250 / 250 Other: # Voids 2 # Incontinent Voids 1 Date of Last Bowel Movement 10/27/18 # Bowel Movements 0 - Constitutional no acute distress - Routine HEENT Exam Head: Present: normocephalic Eye: Present: EOMI ENT: Present: mucous membranes moist - Routine Neck Exam Present: supple - Routine Respiratory Exam Present: decreased breath sounds - Routine Cardiovascular Exam Present: RRR - Routine Abdominal Exam Present: soft - Routine Skin Exam Present: intact - Routine Neurological Exam Present: alert, oriented X3 - Detailed Neurological Exam: Coma Scale Eye Opening: Spontaneous - Routine Psychiatric Exam Present: normal affect Assessment and Plan - Assessment (1) VALDEMAR (acute kidney injury) Code(s): N17.9 - Acute kidney failure, unspecified Status: Acute Plan: Creatinine stable at 1.0 post cardiac cath yesterday Initially on IVFs post cath - stopped this morning. Echogenic kidneys on ultrasound Avoid NSAIDS - was given NSAIDs earlier for chest pains Continue to monitor labs, UOP. (2) Ischemic cardiomyopathy Code(s): I25.5 - Ischemic cardiomyopathy Status: Acute Plan: Post cardiac cath yesterday - no stents placed, recommeded medical management 35% ejection fraction. There was a concern for volume overload with findings of the left ventricular end-diastolic pressure of 40 On Aldactone 25 mg b.i.d. On lasix 20mg PO BID - will stop PO lasix and start IV Bumex 1mg BID to assist with diuresis, with dypsnea symptoms today Follow UOP and creatinine and titrate bumex as needed (3) HTN (hypertension) Code(s): I10 - Essential (primary) hypertension Status: Acute Plan: BP stable, continue medications
--- NOTE | 2018-10-27 15:44 | P.DS ---
Date of admission: 10/24/18 19:34 Primary care physician: No Primary Care Physician Brief History from admission: BNP 686.This is a 53-year-old female with a PMH of HTN, Ischemic Cardiomyopathy, CHF, s/p AICD, CAD s/p Stent x10 and Tobacco Abuse who presented to the ER w/ c/o chest pain. Recent admit 10/12/18 for similar complaints, s/p eval by Cardiology w/ no signs of ischemia, recommendation for medical management. Returns now w/ ongoing complaints. Pt very anxious/ tearful on exam, requesting Dilaudid, states NTG "doesn't do anything". On arrival, BP 149/67, HR 85, O2 sat 95% on RA, Temp 99.1. CBC at baseline. INR 1.2. Troponin 0 0.02. Urine Drug Screen positive for Benzos per CXR with possible interstitial pulmonary edema. Follows w/ Dr. Pina as outpatient, previous cardiac caths negative for significant stenosis, concern for possible narcotic dependence per notes. Dr. Whipple consulted today by ER physician, recommendation for NTG gtt/Heparin gtt and will eval in am. DS: Medications - Discharge Medications Prescriptions: atorvastatin 40 mg PO QPM #30 tab DS: Summary Hospital Course: Patient was admitted with chest pain. Cardiology performed left heart cath which was significant for severely elevated LV EDP. Nephrology was consulted to help optimize fluid status given the patient history of combined systolic and diastolic heart failure with an EF of around 25-35%. Due to persistent chest pain and concern for developing cardiorenal syndrome, patient warranted transfer to outside tertiary care center. Patient has met maximal benefit of hospitalization at our facility and is being discharged with [facility]. - Time Spent with Patient Total time spent providing and/or coordinating discharge services: Less than 30 minutes - Quality: VTE Deep Vein Thrombosis/Pulmonary Embolism Present on Admission: No Exam Vital signs: Vital Signs 10/26/18 16:00 10/26/18 17:00 10/26/18 17:35 Temperature 97.7 F Pulse Rate 88 82 Respiratory Rate 16 16 Blood Pressure 139/68 Pulse Oximetry 94 L 10/26/18 18:00 10/26/18 19:00 10/26/18 20:00 Temperature 97.7 F Pulse Rate 85 85 88 Respiratory Rate 16 Blood Pressure 138/72 Pulse Oximetry 95 10/26/18 21:00 10/26/18 22:00 10/26/18 22:53 Temperature 98 F Pulse Rate 82 78 83 Respiratory Rate 16 Blood Pressure 143/69 H Pulse Oximetry 99 10/26/18 22:56 10/26/18 23:00 10/27/18 00:00 Temperature Pulse Rate 85 74 Respiratory Rate Blood Pressure Pulse Oximetry 96 10/27/18 01:00 10/27/18 02:00 10/27/18 03:00 Temperature Pulse Rate 70 74 81 Respiratory Rate Blood Pressure Pulse Oximetry 10/27/18 04:00 10/27/18 05:00 10/27/18 06:00 Temperature 98.2 F Pulse Rate 85 85 84 Respiratory Rate 16 Blood Pressure 146/75 H Pulse Oximetry 99 10/27/18 07:00 10/27/18 08:00 10/27/18 09:00 Temperature 97.5 F L Pulse Rate 81 76 72 Respiratory Rate 18 Blood Pressure 149/78 H Pulse Oximetry 95 10/27/18 09:13 10/27/18 10:00 10/27/18 11:00 Temperature Pulse Rate 78 88 Respiratory Rate Blood Pressure Pulse Oximetry 95 10/27/18 12:00 10/27/18 13:00 10/27/18 13:05 Temperature 97.7 F Pulse Rate 82 82 Respiratory Rate 14 20 Blood Pressure 148/80 H Pulse Oximetry 99 10/27/18 14:00 10/27/18 15:00 Temperature Pulse Rate 89 89 Respiratory Rate Blood Pressure Pulse Oximetry Intake & Output 10/26/18 10/27/18 10/27/18 18:59 06:59 18:59 Intake Total 757 / 757 740 / 740 125 / 125 Output Total 500 / 500 250 / 250 Balance 257 / 257 490 / 490 125 / 125 Weight 83 kg Intake: IV 157 / 157 500 / 500 125 / 125 NS Inj 1,000 ML @ 42 mls/hr IV. 157 / 157 500 / 500 125 / 125 CONT .[id number] [facility] Rx#:[id number] Oral 600 / 600 240 / 240 Output: Urine 500 / 500 250 / 250 Other: # Voids 2 # Incontinent Voids 1 Date of Last Bowel Movement 10/27/18 # Bowel Movements 0 Narrative: Heart sounds regular rate and rhythm Clear lung bilaterally, unlabored breathing Abdomen soft, nontender No lower extremity edema Awake at the bedside, talking on the phone, appears in no acute distress Results Procedures completed during hospitalization: Left heart catheterization, left ventriculography, coronary angiography Labs on day of discharge: Labs from last 24 hours 10/27/18 10/27/18 10/27/18 06:23 06:23 06:23 WBC 5.6 RBC 4.79 Hgb 11.7 Hct 36.5 MCV 76.2 L MCH 24.4 L MCHC 32.1 RDW 19.0 H Plt Count 215 MPV 8.6 Neut % (Auto) 57.1 Lymph % (Auto) 29.7 [place] % (Auto) 11.4 H Eos % (Auto) 1.1 Baso % (Auto) 0.7 Neut # (Auto) 3.2 Lymph # (Auto) 1.7 [place] # (Auto) 0.6 Eos # (Auto) 0.1 Baso # (Auto) 0.0 WBC Differential . Differential Comment Auto diff final Sodium 140 Potassium 4.2 Chloride 108 H Carbon Dioxide 20.4 L Anion Gap 12 BUN 19 H Creatinine 1.00 Estimated GFR 58 L Random Glucose 101 Calcium 8.7 Total Bilirubin 0.7 AST 15 ALT 19 Alkaline Phosphatase 101 B-Natriuretic Peptide 1131 H Total Protein 7.5 Albumin 3.3 L - Impressions ITS Impressions Chest X-Ray 10/24/18 17:21 CONCLUSION: 1. Subtle perihilar and lower lung zone interstitial opacity could represent mild interstitial pulmonary edema. 2. Stable enlargement of the cardiac silhouette. Abdomen/Bladder Ultrasound 10/26/18 15:26 CONCLUSION: 1. Echogenic kidneys consistent with medical renal disease. 2. No sonographic evidence for obstructive uropathy. 3. Very trace ascites. Discharge Plan - Discharge Disposition Patient Disposition: 02 Disch To Another Hospital - Discharge Condition Condition: Fair - Discharge Order Discharge Orders: Discharge Order (Routine); Ordered 10/27/18 Ordered By: Juan Mcghee ED Use Only Admit Order (Routine); Ordered 10/24/18 Ordered By: Almaz Galarza - Discharge Details Discharge Comment: DC once cleared by cardiology - Physicians Team Primary Care Provider: Primary Care Clarisse,No Attending Provider: Juan Mcghee Other Providers: Patrick Whipple MD ; Curtis Philip MD
== END 2018-10-27 17:25 | disposition short-term general hospital (02) ==
LOC: NEPE 17:00 → NEDA 19:34 → HCPC 22:25 → NEDA 22:30
PROVIDERS: ADMIT Hospitalist; ATTEND Hospitalist